=== PATIENT | male | born 1985 | race Caucasian/White ===

== ENCOUNTER → 2018-01-21 | Outpatient (CLI) | payer OTHER ==
[2018-01-23 00:13] LABS: TISSUE TRANSGLUTAMINASE IgA <2 U/mL (0-3)
== END ==
LOC: M LAB 11:33
DX: A07.1 Giardiasis [lambliasis] (principal); R19.7 Diarrhea, unspecified
CPT/HCPCS: 82784

== ENCOUNTER → 2018-02-03 | Outpatient (CLI) | payer OTHER ==
[~2018-02-03] MED LIST: GLUCAGON FOR INJ 1 MG VIAL (J1610) As Ordered; ISOVUE-370 76% 100ML VIAL (Q9967) As Ordered; VoLumen 0.1% SUSPENSION 450ML BOTTLE As Ordered
== END ==
LOC: M RAD 09:01
DX: R19.7 Diarrhea, unspecified (principal)
CPT/HCPCS: Q9967

== ENCOUNTER 2018-02-13 12:53 | Day surgery (SDC) | payer OTHER ==
[2018-02-13] MEDS: NS 1,000 ML IV (14:10)
[2018-02-13] MEDS ORDERED: PROPOFOL 200 MG/20 ML VIAL As Ordered ×4 (16:01→16:13)
[2018-02-13] MEDS ORDERED: LIDOCAINE 2% INJ 100 MG/5 ML SDV (FOR ANES.) As Ordered (16:01)
== END 2018-02-13 17:40 | disposition home or self-care (01) ==
LOC: M OPP 12:53
DX: R19.4 Change in bowel habit (principal); Z86.19 Personal history of other infectious and parasitic diseases; R10.13 Epigastric pain; R10.84 Generalized abdominal pain; R19.7 Diarrhea, unspecified; K22.8 Other specified diseases of esophagus; Z92.21 Personal history of antineoplastic chemotherapy; Z86.14 Personal history of Methicillin resistant Staphylococcus aureus infection
CPT/HCPCS: 45380

== ENCOUNTER 2019-02-19 18:42 | Emergency (ER) | payer OTHER ==
[~2019-02-19] VITALS: Ht 177.8 cm; Wt 83.2 kg
[2019-02-19] MEDS ORDERED: METHOCARBAMOL 1,000 MG/10 ML VIAL (J2800) IV ONE (19:45)
--- NOTE | 2019-02-19 20:33 | REPVR ---
EXAM: CT Cervical Spine Without Contrast EXAM DATE/TIME: 02/19/2019 7:49 PM CLINICAL HISTORY: 33 years old, male; Neck pain; Additional info: Severe left sided neck pain TECHNIQUE: Imaging protocol: Computed tomography images of the cervical spine without contrast. Radiation optimization: All CT scans at this facility use at least one of these dose optimization techniques: automated exposure control; mA and/or kV adjustment per patient size (includes targeted exams where dose is matched to clinical indication); or iterative reconstruction. COMPARISON: No relevant prior studies available. FINDINGS: Vertebrae: No acute fracture. Normal alignment. Discs/Spinal canal/Neural foramina: No spinal stenosis. No neural foraminal narrowing. Soft tissues: Unremarkable. Lungs: Lung apices are normal. IMPRESSION: No acute findings. Electronically signed by: Serge Bloom On 02/19/2019 20:33:26 PM
[2019-02-19] MEDS ORDERED: KETOROLAC 30 MG/ML VIAL (J1885) IV ONE (21:15)
[2019-02-19 22:02] VITALS: BP 133/68; O2SAT 98
[2019-02-19] MEDS ORDERED: NAPR-837 PO (22:48)
[2019-02-19] MEDS ORDERED: ROBA750T4 PO (22:48)
== END 2019-02-19 23:08 | disposition home or self-care (01) ==
LOC: M ED 18:42
DX: S16.1XXA Strain of muscle, fascia and tendon at neck level, initial encounter (principal); X50.9XXA Other and unspecified overexertion or strenuous movements or postures, initial encounter; Y92.9 Unspecified place or not applicable
CPT/HCPCS: 72125; 96374; 96375; 99284; J1885; J2800